=== PATIENT | male | born 1945 | race Caucasian/White ===

== ENCOUNTER → 2017-08-12 | Outpatient (CLI) | payer MEDICARE, OTHER ==
[~2017-08-12] MED LIST: ACET325 PO; ACIDOPHILUS LA1 EACH PO; AMLO5 PO; ARTTEAOPSO BOTHEYES; ASPI325 PO; ASPI81CH PO; Aranesp60 MCG/0.3 INJ; Aranesp60 MCG/0.3 SC; BD INSULIN MC; BISA10S PR; BUME1 PO; BUME2 PO; CALACE667G PO; CALC.25; CALC.25 PO; CALCA500CH PO; CEFP200 PO; CEPH500 PO; CHOL10002 PO; CIPR500 PO; CLON.1 PO; CLOP75 PO; CODGUAEL PO; CVS DISPOSABLE399 ML PR; CYAN1000I IM; CYAN1000I PO; CYCL10 PO; Calcium Acetat667 MG PO; Calmoseptine Oi71 GM TP; Colace250 MG PO; Coumadin2 MG PO; DARB200I SC; DOC250 PO; DOCU100 PO; DOXY100 PO; ELIQUIS2.5 MG PO; ENOX100I SQ; ENOX120I SC; ENOX60I SC; ERGO400 PO; FINA5 PO; FISH OIL + D31 EACH PO; FURO80; FURO80 PO; GABA100 PO; GLIM4; GLIP5ER PO; HYDACE10B PO; HYDHCL25 PO; HYDMOR2 PO; HYDMOR4 PO; HYDR-86 PO; HYDR1TAB94 PO; HYDRA25 PO; Humalog100 UNIT/1; Humalog100 UNIT/1 SC; INS70/30PN; INSDET100 SC; INSDET100 SUBQ; INSDETPEN SC; INSLIS75I SC; INSU100I6 SC; INSUASPI SC; INSULANPEN SC; Keflex500 MG PO; LASIX; LAVAP17G PO; LEVFLO250 PO; LEVFLO500 PO; LIDO5TP TOP; LORTAB; LOSA25 PO; LOSA50 PO; Lacri-Lube S.O3.5 GM BOTHEYES; METF500; METO2.5 PO; METO5 PO; METR500 PO; MIRALAX17 GM PO; Micro-K10 MEQ; Milk Of Ma400 MG/5 M PO; NEBI5 PO; NEPHRO-VITE RX1 EACH PO; NYST100P TOP; Nephro-Vite RX1 EA PO; Novolog100 UNIT/2 SC; OMEP20ER PO; ONDA4ODT MM; ONDA4ODT PO; ONDA8 PO; OXYC5 PO; Omeprazole20 M1 PO; PHOSLYRA667 MG/5 M PO; POTA10T PO; PRAV10 PO; PRAV20 PO; PRIM50 PO; PROBIOTIC1 EAC1; PROBIOTIC1 EAC1 PO; PROC10 PO; Percocet 5-3251 EACH PO; RENO PO; ROXICODONE5 MG PO; Rena-Vite Tabl0.8 MG PO; Rocephin 1g1 G/50 ML IV; SEVEC800 PO; SINEMET 25-1001 EACH PO; Stool Softener250 MG PO; TAMS.4ER PO; TERB250; TUMS DUAL ACTI1 EACH PO; Tylenol325 MG PO; UNK DIURETIC; WARF2 PO; WARF3 PO; WARF4 PO; WARF5 PO; WARF6 PO; XYZAL5 MG PO; Zofran Odt4 MG SL; Zofran Odt8 MG SL; Zofran4 MG PO; [UNRECOGNIZED DRUG - OTHER] PO; [UNRECOGNIZED DRUG - OTHER] TP
[2017-08-12 13:15] LABS: CHOL/HDL RATIO 2.7; Cholesterol 102 mg/dL (50-200); HDL Cholesterol 38 mg/dL (>39); LDL/HDL RATIO 1.2; Low Density Lipoprotein Chol 45 mg/dL (0-110); Triglycerides 94 mg/dL (30-160); Very Low Density Lipoprot Chol 18 mg/dL (6-32)
== END ==
LOC: LAB SHORT 12:38
PROVIDERS: Internal Medicine Nephrology
DX: E78.00 Pure hypercholesterolemia, unspecified (principal)
CPT/HCPCS: 80061

== ENCOUNTER 2018-09-21 10:43 | Day surgery (SDC) | payer MEDICARE, OTHER ==
[~2018-09-21] VITALS: Ht 183.9 cm; Wt 110.5 kg
[~2018-09-21 10:43] MED LIST changes: +Novolog Fl100 UNIT/1 SC
[2018-09-21] MEDS ORDERED: ELIQUIS5 MG PO (11:26)
[2018-09-21 12:09] LABS: International Normalized Ratio 0.98; Prothrombin Time Results 10.4 Sec (9.7-11.5)
--- NOTE | 2018-09-21 16:33 | NUR ---
DISCHARGE: PT REMAINED A&OX3. PT STATED PAIN LEVEL OF 7/10 INITIALLY IN THE SHOULDER AREA . BOTH UPPER R ARM SITES SUTURES REMOVED AFTER ONE HOUR IN RECOVERY-REMAIN CDI-NO HEMATOMA-CLOTH DOT BANDAGES IN PLACE. PT PLACED IN WHEELCHAIR WITH ASSISTANCE FROM THE GEOVANNA LIFT AND JANETT Lima RN ASSISTING. CAREGIVER HELPED WITH PUTTING PT'S SHIRT ON AND PLACED WHEELCHAIR SEATBELT. IV DC'D WITH TIP IN CANULA IN TACT BY JANETT Lima RN. DISCHARGE PAPERWORK GONE OVER WITH PT AND CAREGIVER. PT AND CAREGIVER VERBALLY STATED THE UNDERSTANDING OF THE DISCHARGE EDUCATION AND DENIED ANY QUESTIONS AT THIS TIME. DR. PEREZ IN [facility] PAIN AND PROCEDURE FINDINGS AND FOLLOW-UP PLAN BEFORE DISCHARGE. PT WHEELD OUT BY CAREGIVER TO TRANSPORTATION VAN.
== END 2018-09-21 16:40 | disposition home or self-care (01) ==
LOC: MHTC 10:43
PROVIDERS: Radiology Diagnostic Radiology
DX: E11.22 Type 2 diabetes mellitus with diabetic chronic kidney disease (principal); N18.6 End stage renal disease; E11.52 Type 2 diabetes mellitus with diabetic peripheral angiopathy with gangrene; I25.10 Atherosclerotic heart disease of native coronary artery without angina pectoris; K21.9 Gastro-esophageal reflux disease without esophagitis; Z87.891 Personal history of nicotine dependence; Z99.89 Dependence on other enabling machines and devices; Z86.73 Personal history of transient ischemic attack (TIA), and cerebral infarction without residual deficits; Z99.2 Dependence on renal dialysis; Z85.828 Personal history of other malignant neoplasm of skin; Z79.899 Other long term (current) drug therapy
CPT/HCPCS: 85610; 99152; 99153; C1725; C1757; C1769; C1876; C1887; C1894; J1644; J2250; J3010; J7030; Q9967

== ENCOUNTER 2018-10-05 12:30 | Day surgery (SDC) | payer MEDICARE, OTHER ==
[~2018-10-05 12:30] MED LIST changes: +ELIQUIS5 MG PO
--- NOTE | 2018-10-05 12:45 | NUR ---
PT ARRIVED TO ROOM VIA HIS OWN WHEELCHAIR, A/O X 4, PLEASANT/COOPERATIVE, CAREGIVERS WITH PT. PT TRANSFERRED TO RECLINER WITH LIFT. TYPE AND SCREEN ORDERS. 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 ULTRASOUND WILL BE REQUIRED FOR IV START. LENS EDGE GRINDER MACHINE IS CALLED.
--- NOTE | 2018-10-05 13:41 | NUR ---
repositioned patient with two pillows. awaiting ICU sales recruitment specialist with ultrasound start of peripheral
--- NOTE | 2018-10-05 14:15 | NUR ---
glass furnace operator delonda accessed pt's dialysis port, linda blood for type/screen, ambulated blood to blood bank. awaiting blood slip. franklyn morin will be starting blood once available
--- NOTE | 2018-10-05 18:10 | NUR ---
INFUSION COMPLETE, VSS. DIALYSIS PORT DE-ACCESSED PER PROTOCOL/INSTRUCTIONS FROM CURB SETTER. PT A/0 X 4, PLEASANT/COOPERATIVE. PT TRANSFERRED TO WHEELCHAIR WITH LIFT. CAREGIVERS CALLED FOR TRANSPORT, AWAITING RETURN
--- NOTE | 2018-10-05 18:20 | NUR ---
pt's caregiver to transfer pt to awaiting vehicle via wheelchair with belongings
== END 2018-10-05 18:30 | disposition home or self-care (01) ==
LOC: SURS 12:30 → TRN 12:30
PROC: 30243N1 Transfusion of Nonautologous Red Blood Cells into Central Vein, Percutaneous Approach (ICD-10-PCS; principal; 2018-10-05)
DX: N18.6 End stage renal disease (principal); D63.1 Anemia in chronic kidney disease; Z99.2 Dependence on renal dialysis
CPT/HCPCS: 36430; 86850; 86900; 86901; 86923; J7050; P9016

== ENCOUNTER 2019-02-14 16:39 | Observation (INO) | payer MEDICARE, OTHER ==
[~2019-02-14] VITALS: Ht 152.4 cm; Wt 105.6 kg
[~2019-02-14 16:39] MED LIST changes: -ELIQUIS5 MG PO; -Novolog Fl100 UNIT/1 SC; -SINEMET 25-1001 EACH PO
[2019-02-14 17:44] LABS: BASOPHILS ABSOLUTE AUTO 0.03 K/mm3 (0.00-0.23); BASOPHILS PERCENT AUTO 0 % (0-2); EOSINOPHILS ABSOLUTE AUTO 0.42 K/mm3 (0.00-0.68); EOSINOPHILS PERCENT AUTO 4 % (0-6); Hematocrit 40.1 % (37.0-53.0); Hemoglobin 12.5 g/dL (13.5-17.5); IMMATURE GRAN ABSOLUTE AUTO 0.02 K/mm3 (0.00-0.10); IMMATURE GRAN PERCENT AUTO 0 % (0-1); LYMPHOCYTES ABSOLUTE AUTO 1.06 K/mm3 (0.84-5.20); LYMPHOCYTES PERCENT AUTO 10 % (21-46); MONOCYTES ABSOLUTE AUTO 0.42 K/mm3 (0.16-1.47); MONOCYTES PERCENT AUTO 4 % (4-13); Mean Corpuscular HGB 31.2 pg (26.0-34.0); Mean Corpuscular HGB Conc 31.2 g/dL (31.5-36.5); Mean Corpuscular Volume 100 fL (80-100); Mean Platelet Volume 11.4 fL (9.1-12.4); NEUTROPHILS ABSOLUTE AUTO 8.53 K/mm3 (1.96-9.15); NEUTROPHILS PERCENT AUTO 81 % (41-73); Platelet Count 233 K/mm3 (150-400); RDW Coefficient Variation 14.5 % (11.7-14.2); RDW Standard Deviation 53.4 fL (35.1-46.3); Red Blood Cell Count 4.01 M/mm3 (4.30-5.90); White Blood Cell Count 10.48 K/mm3 (4.00-11.30)
[2019-02-14 18:07] LABS: International Normalized Ratio 0.96; Prothrombin Time Results 10.2 Sec (9.7-11.5)
[2019-02-14 19:23] LABS: Albumin/Globulin Ratio 0.5 (0.8-1.8); Bilirubin, Total 0.3 mg/dL (0.1-1.0); Bun/Creatinine Ratio 12.1 (12.0-20.0); Calcium, Blood 8.3 mg/dL (8.5-10.1); Creatinine, Blood 3.23 mg/dL (0.60-1.20); Globulin, Blood 5.7 g/dL (2.2-4.0); Total Protein, Blood 8.7 g/dL (6.4-8.2); Troponin I 0.016 ng/mL (0.000-0.040)
[2019-02-14] MEDS ORDERED: CLON.1 PO (20:30)
[2019-02-14] MEDS ORDERED: INSULANPEN SC (20:30)
[2019-02-14] MEDS ORDERED: GABA100 PO (20:31)
[2019-02-14] MEDS ORDERED: Omeprazole20 M1 PO (20:31)
[2019-02-14] MEDS ORDERED: PRAV20 PO (20:31)
[2019-02-14] MEDS ORDERED: FINA5 PO (20:32)
[2019-02-14] MEDS ORDERED: Bumetanide2 MG PO (20:32)
[2019-02-14] MEDS ORDERED: SINEMET 25-1001 EACH PO (20:33)
[2019-02-14] MEDS ORDERED: LOSA50 PO (20:33)
[2019-02-14] MEDS ORDERED: Rena-Vite Tabl0.8 MG PO (20:34)
[2019-02-14] MEDS ORDERED: NOVOLOG FL100 UNIT/1 SC (20:34)
[2019-02-14] MEDS ORDERED: SEVEC800 PO (20:35)
[2019-02-14] MEDS ORDERED: ELIQUIS2.5 MG PO (20:36)
[2019-02-14] MEDS ORDERED: Cyclobenzaprine5 MG PO (20:37)
--- NOTE | 2019-02-15 01:02 | NUR ---
2145 PT ADMITTED TO ROOM 306 PER CART FROM ER.
[2019-02-15 04:58] LABS: Hematocrit 37.1 % (37.0-53.0); Hemoglobin 11.5 g/dL (13.5-17.5); Mean Corpuscular HGB 30.7 pg (26.0-34.0); Mean Corpuscular Volume 99 fL (80-100); Mean Platelet Volume 11.3 fL (9.1-12.4); Platelet Count 209 K/mm3 (150-400); RDW Coefficient Variation 14.5 % (11.7-14.2); RDW Standard Deviation 52.7 fL (35.1-46.3); Red Blood Cell Count 3.75 M/mm3 (4.30-5.90); White Blood Cell Count 12.89 K/mm3 (4.00-11.30)
[2019-02-15 05:15] LABS: Albumin, Blood 2.7 g/dL (3.4-5.0); Anion Gap 9 mmol/L (6-16); Blood Urea Nitrogen 47 mg/dL (8-24); Bun/Creatinine Ratio 11.9 (12.0-20.0); CO2, Blood 31 mmol/L (21-32); Calcium, Blood 8.1 mg/dL (8.5-10.1); Chloride, Blood 96 mmol/L (98-108); Creatinine, Blood 3.94 mg/dL (0.60-1.20); Glomerular Filtration Rate 16 (60-); Glucose, Blood 133 mg/dL (70-99); Magnesium, Blood 2.4 mg/dL (1.6-2.4); Phosphorus, Blood 3.2 mg/dL (2.5-4.9); Sodium, Blood 136 mmol/L (136-145)
--- NOTE | 2019-02-15 06:39 | NUR ---
SHIFT SUMMARY: 73 Y/O OBESE MALE RESTED COMFORTABLY ALL SHIFT WHILE BIPAP WITH O2 SAT 100% VIA CONTINUOUS MONITOR, BLOOD GLUCOSE MONITORED WITH LAST RESULT 91 AND ATE SNACK PRIOR BEDTIME, HANH HAS STAGE II ULCER (SEE PHOTO) WITH MEPLEX APPLIED, VOICED HE WAS EXPOSED TO AGENT ORANGE IN THE [place] AFTER 3 TOURS FROM [id number] MEDIC, DENIES PAIN OR NAUSEA, BED ALARM APPLIED, BED LOW POSITION, CALL LIGHT AT SIDE.
--- NOTE | 2019-02-15 06:42 | NUR ---
8038 DR QUINTANA AT BEDSIDE FOR CONSULT.
--- NOTE | 2019-02-15 09:05 | NUR ---
ECHO IN PROGRESS.
--- NOTE | 2019-02-15 09:47 | NUR ---
Echocardiogram using 27ml (3 X9ml) of agitated saline contrast performed.
--- NOTE | 2019-02-15 15:11 | NUR ---
Patient is lying in bed and alert. 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 Patient also spoke of the many victories along the way: his salvation experience in becoming a Islam, his wedding day and the decades of love he received from his . Patient told many funny stories and talks about his carolin and his sense of humor as the keys to overcoming adversity. I provided empathic listening, pastoral insurance counselor and prayer. Patient responded well and showed signs of a greater sense of hope.
--- NOTE | 2019-02-15 17:21 | NUR ---
SHIFT SUMMARY OX3. [id number]. PLEASANT COOPERATIVE. CAROTID DOPPLER, ECHO AND MRI RESULTS PENDING. NO DIALYSIS TODAY. LIFT PATIENT. MEPILEX TO SACRUM FOR DECUBITUS. ESBL CONTACT ISOLATION.
--- NOTE | 2019-02-16 04:46 | NUR ---
SHIFT SUMMARY: 73 Y/O MALE RESTED COMFORTABLY IN BED ALL SHIFT WHILE WEARING O2 AT 2L/M PER NASAL CANNULA WITH CONTINUOUS PULSE OXIMETER REFLECTING 93% READINGS, ALERT AND ORIENTED X 4, DENIES PAIN OR NAUSEA, BED ALARM APPLIED, BED LOW POSITION, CALL LIGHT AT SIDE.
[2019-02-16 04:51] LABS: BASOPHILS ABSOLUTE AUTO 0.04 K/mm3 (0.00-0.23); BASOPHILS PERCENT AUTO 0 % (0-2); EOSINOPHILS ABSOLUTE AUTO 0.53 K/mm3 (0.00-0.68); EOSINOPHILS PERCENT AUTO 5 % (0-6); Hematocrit 35.8 % (37.0-53.0); Hemoglobin 11.3 g/dL (13.5-17.5); IMMATURE GRAN ABSOLUTE AUTO 0.02 K/mm3 (0.00-0.10); IMMATURE GRAN PERCENT AUTO 0 % (0-1); LYMPHOCYTES ABSOLUTE AUTO 1.66 K/mm3 (0.84-5.20); LYMPHOCYTES PERCENT AUTO 17 % (21-46); MONOCYTES ABSOLUTE AUTO 0.55 K/mm3 (0.16-1.47); MONOCYTES PERCENT AUTO 6 % (4-13); Mean Corpuscular HGB 31.8 pg (26.0-34.0); Mean Corpuscular HGB Conc 31.6 g/dL (31.5-36.5); Mean Corpuscular Volume 101 fL (80-100); Mean Platelet Volume 11.5 fL (9.1-12.4); NEUTROPHILS ABSOLUTE AUTO 7.17 K/mm3 (1.96-9.15); NEUTROPHILS PERCENT AUTO 72 % (41-73); Platelet Count 187 K/mm3 (150-400); RDW Coefficient Variation 14.4 % (11.7-14.2); RDW Standard Deviation 53.3 fL (35.1-46.3); Red Blood Cell Count 3.55 M/mm3 (4.30-5.90); White Blood Cell Count 9.97 K/mm3 (4.00-11.30)
[2019-02-16 05:17] LABS: Magnesium, Blood 2.6 mg/dL (1.6-2.4)
[2019-02-16 05:29] LABS: Albumin, Blood 2.7 g/dL (3.4-5.0); Albumin/Globulin Ratio 0.6 (0.8-1.8); Bilirubin, Total 0.3 mg/dL (0.1-1.0); Bun/Creatinine Ratio 12.5 (12.0-20.0); Calcium, Blood 8.2 mg/dL (8.5-10.1); Creatinine, Blood 5.7 mg/dL (0.60-1.20); Globulin, Blood 4.8 g/dL (2.2-4.0); Potassium, Blood 4.3 mmol/L (3.5-5.5); Total Protein, Blood 7.5 g/dL (6.4-8.2)
--- NOTE | 2019-02-16 18:17 | NUR ---
SHIFT SUMMARY. A&OX3, PLEASANT, COOPERATIVE. PT DENIES PAIN SOB, N/V. PT RECIEVED DIALYSIS TODAY. MEPILEX CHANGED TO COCCYX AFTER BEDBATH. PT HAD 2 BMS THIS SHIFT. MRI COMPLETED. NO NEW CHANGES OR CONCERNS.
--- NOTE | 2019-02-16 22:34 | NUR ---
DR QUINTANA AT BEDSIDE
--- NOTE | 2019-02-17 03:52 | NUR ---
SHIFT SUMMARY: 73 Y/O OBESE MALE RESTED COMFORTABLY ALL SHIFT WITH NO C/O PAIN OR NAUSEA, WEARING O2 AT 2L/M PER NASAL CANNULA, ALERT AND ORIENTED X4, RIGHT UPPER CHEST DIALYSIS PERMACATH DRESSING DRY AND INTACT WITH NO S/S INFECTION, MEPLEX DRESSING TO COCCYX DRY AND INTACT, BED ALARM APPLIED, BED LOW POSITION, CALL LIGHT AT SIDE.
--- NOTE | 2019-02-17 04:25 | NUR ---
PATIENT TRANSFER RN TO RN. RECEIVED REPORT FROM AARON GARZA.
[2019-02-17 05:04] LABS: Hemoglobin 11.2 g/dL (13.5-17.5)
[2019-02-17 05:35] LABS: Albumin, Blood 2.8 g/dL (3.4-5.0); Anion Gap 9 mmol/L (6-16); Blood Urea Nitrogen 54 mg/dL (8-24); Bun/Creatinine Ratio 10.6 (12.0-20.0); CO2, Blood 31 mmol/L (21-32); Calcium, Blood 8.3 mg/dL (8.5-10.1); Chloride, Blood 96 mmol/L (98-108); Creatinine, Blood 5.09 mg/dL (0.60-1.20); Glomerular Filtration Rate 12 (60-); Glucose, Blood 157 mg/dL (70-99); Magnesium, Blood 2.4 mg/dL (1.6-2.4); Phosphorus, Blood 3.4 mg/dL (2.5-4.9); Sodium, Blood 136 mmol/L (136-145)
--- NOTE | 2019-02-17 13:35 | NUR ---
MICHAEL, PT'S POA, NOTIFIED OF PT'S D/C ORDERS, HE REPORTED THAT HE WOULD "BE UP IN A BIT."
--- NOTE | 2019-02-17 15:12 | NUR ---
1450 PT DISCHARGED HOME VIA PERSONAL VEHICLE AND W/C. PERSONAL LIFT SLING AND CEILING LIFT USED TO TRANSFER PT TO CHAIR. IV REMOVED. D/C PAPERWORK REVIEWED WITH JOSE ANTONIO RODRIGUEZ, PRIOR TO D/C AND COPY PROVIDED. MICHAEL CONTACTED DR. QUINTANA'S OFFICE TO CONFIRM PT'S DIALYSIS TOMORROW HE HAD DIALYSIS TODAY INPATIENT. PT HAD LARGE UNFORMED BM PRIOR TO D/C, MEPILEX CHANGED TO COCCYX. NO NEW CHANGES OR CONCERNS.
== END 2019-02-17 14:59 | disposition home or self-care (01) ==
LOC: ER 16:39 → MEDS 16:40
PROVIDERS: Emergency Medicine; Internal Medicine Nephrology; Nurse Practitioner Acute Care; ADMIT Internal Medicine
DX: G56.21 Lesion of ulnar nerve, right upper limb (principal); I13.2 Hypertensive heart and chronic kidney disease with heart failure and with stage 5 chronic kidney disease, or end stage renal disease; E11.22 Type 2 diabetes mellitus with diabetic chronic kidney disease; I50.9 Heart failure, unspecified; N18.6 End stage renal disease; D63.1 Anemia in chronic kidney disease; E11.51 Type 2 diabetes mellitus with diabetic peripheral angiopathy without gangrene; I73.9 Peripheral vascular disease, unspecified; E87.70 Fluid overload, unspecified; E87.1 Hypo-osmolality and hyponatremia; E87.5 Hyperkalemia; J96.11 Chronic respiratory failure with hypoxia; J96.12 Chronic respiratory failure with hypercapnia; I48.91 Unspecified atrial fibrillation; G47.33 Obstructive sleep apnea (adult) (pediatric); E66.9 Obesity, unspecified; Z99.2 Dependence on renal dialysis; Z79.899 Other long term (current) drug therapy; Z88.5 Allergy status to narcotic agent; Z79.4 Long term (current) use of insulin; Z79.02 Long term (current) use of antithrombotics/antiplatelets; Z87.891 Personal history of nicotine dependence; Z68.42 Body mass index [BMI] 45.0-49.9, adult
CPT/HCPCS: 36415; 70450; 71046; 73221; 80048; 80053; 80069; 82947; 83036; 83735; 84484; 85014; 85018; 85025; 85027; 85610; 85730; 93005; 93010; 93306; 93880; 93971; 94660; 94762; 99285-25; G0257; G0378

== ENCOUNTER 2019-07-27 16:37 | Observation (INO) | payer MEDICARE, OTHER ==
[~2019-07-27] VITALS: Ht 149.9 cm; Wt 101.6 kg
[~2019-07-27 16:37] MED LIST changes: +Bumetanide2 MG PO; +Cyclobenzaprine5 MG PO; +NOVOLOG FL100 UNIT/1 SC; +SINEMET 25-1001 EACH PO
[2019-07-27 17:17] LABS: BASOPHILS ABSOLUTE AUTO 0.04 K/mm3 (0.00-0.23); BASOPHILS PERCENT AUTO 0 % (0-2); EOSINOPHILS ABSOLUTE AUTO 0.45 K/mm3 (0.00-0.68); EOSINOPHILS PERCENT AUTO 3 % (0-6); Hematocrit 40.5 % (37.0-53.0); Hemoglobin 12.8 g/dL (13.5-17.5); IMMATURE GRAN ABSOLUTE AUTO 0.06 K/mm3 (0.00-0.10); IMMATURE GRAN PERCENT AUTO 0 % (0-1); LYMPHOCYTES ABSOLUTE AUTO 1.79 K/mm3 (0.84-5.20); LYMPHOCYTES PERCENT AUTO 11 % (21-46); MONOCYTES PERCENT AUTO 6 % (4-13); Mean Corpuscular HGB 32.5 pg (26.0-34.0); Mean Corpuscular HGB Conc 31.6 g/dL (31.5-36.5); Mean Corpuscular Volume 103 fL (80-100); Mean Platelet Volume 11.5 fL (9.1-12.4); NEUTROPHILS ABSOLUTE AUTO 13.17 K/mm3 (1.96-9.15); NEUTROPHILS PERCENT AUTO 80 % (41-73); Platelet Count 285 K/mm3 (150-400); RDW Coefficient Variation 13.3 % (11.7-14.2); RDW Standard Deviation 51.4 fL (35.1-46.3); Red Blood Cell Count 3.94 M/mm3 (4.30-5.90); White Blood Cell Count 16.51 K/mm3 (4.00-11.30)
[2019-07-27 17:39] LABS: Albumin, Blood 3.7 g/dL (3.4-5.0); Albumin/Globulin Ratio 0.6 (0.8-1.8); Bilirubin, Total 0.4 mg/dL (0.1-1.0); Bun/Creatinine Ratio 17.1 (12.0-20.0); Calcium, Blood 8.7 mg/dL (8.5-10.1); Creatinine, Blood 1.99 mg/dL (0.60-1.20); Globulin, Blood 6.4 g/dL (2.2-4.0); Potassium, Blood 3.4 mmol/L (3.5-5.5); Total Protein, Blood 10.1 g/dL (6.4-8.2); Troponin I 0.053 ng/mL (0.000-0.040)
[2019-07-27] MEDS ORDERED: Midodrine HCl5 MG PO (17:42)
[2019-07-27] MEDS ORDERED: GABA100 PO (19:19)
[2019-07-27] MEDS ORDERED: INSULANPEN SC (23:01)
[2019-07-27] MEDS ORDERED: MIRALAX17 GM PO (23:04)
--- NOTE | 2019-07-28 04:58 | NUR ---
BASKETBALL ASSEMBLER SUMMARY NEW ADMIT FROM THE ED TONIGHT. PT ON OBSERVATION AFTER HAVING A SYNCOPAL EPISODE AT THE END OF DIALYSIS SESSION. PT DENIES SIMILAR SYMPTOMS AND VS HAVE BEEN STABLE WITH SBP 90-110. PT STATES THESE ARE NORMAL FOR HIM. PT HAS BILATERAL BKA AND IS INCONTINENT AT BASELINE. ASSISTED WITH TURNS AND CHANGES. PT HAS SMALL AMOUNT OF SKIN BREAKDOWN ON COCCYX. PHOTO PLACED IN CHART AND MEPILEX COVERED AREA TO PREVENT FURTHER BREAKDOWN. VSS, WILL CONTINUE TO MONITOR.
[2019-07-28 05:13] LABS: Bun/Creatinine Ratio 18.1 (12.0-20.0); Calcium, Blood 8.7 mg/dL (8.5-10.1); Creatinine, Blood 2.93 mg/dL (0.60-1.20); Potassium, Blood 3.6 mmol/L (3.5-5.5)
--- NOTE | 2019-07-28 10:41 | NUR ---
DISCHARGE INSTRUCTIONS REVIEWED WITH PATIENT. ALL QUESTIONS ANSWERED. IV DISCONTINUED. PATIENT TO CALL HIS DRAWING IN MACHINE TENDER FOR A RIDE HOME.
--- NOTE | 2019-07-28 11:40 | NUR ---
PATIENT DISCHARGED HOME WITH CAREGIVER AT 1139. ASSISTED WITH TRANSFERING PATIENT INTO WHEELCHAIR USING GEOVANNA LIFT.
== END 2019-07-28 11:40 | disposition home or self-care (01) ==
LOC: ER 16:37 → MEDS 16:38
PROVIDERS: Emergency Medicine; ADMIT Internal Medicine
DX: R55 Syncope and collapse (principal); R79.89 Other specified abnormal findings of blood chemistry; J96.11 Chronic respiratory failure with hypoxia; J96.12 Chronic respiratory failure with hypercapnia; I13.2 Hypertensive heart and chronic kidney disease with heart failure and with stage 5 chronic kidney disease, or end stage renal disease; E11.22 Type 2 diabetes mellitus with diabetic chronic kidney disease; N18.6 End stage renal disease; I50.9 Heart failure, unspecified; G47.33 Obstructive sleep apnea (adult) (pediatric); I48.91 Unspecified atrial fibrillation; E11.51 Type 2 diabetes mellitus with diabetic peripheral angiopathy without gangrene; E66.9 Obesity, unspecified; Z68.41 Body mass index [BMI] 40.0-44.9, adult; Z99.2 Dependence on renal dialysis; Z86.73 Personal history of transient ischemic attack (TIA), and cerebral infarction without residual deficits; Z89.512 Acquired absence of left leg below knee; Z89.511 Acquired absence of right leg below knee; Z88.5 Allergy status to narcotic agent; Z91.018 Allergy to other foods; Z91.048 Other nonmedicinal substance allergy status; Z79.4 Long term (current) use of insulin; Z79.01 Long term (current) use of anticoagulants; Z79.899 Other long term (current) drug therapy
CPT/HCPCS: 36415; 80048; 80053; 82947; 83880; 84146; 84484; 85025; 87081; 93005; 93010; 96360; 96361; 96372; 99285-25; G0378; J1644; J7030

== ENCOUNTER 2019-11-15 08:59 | Inpatient (IN) | payer MEDICARE, OTHER ==
[~2019-11-15] VITALS: Ht 152.4 cm; Wt 74.0 kg
[~2019-11-15 08:59] MED LIST changes: -Bumetanide2 MG PO; -Cyclobenzaprine5 MG PO; -NOVOLOG FL100 UNIT/1 SC; -SINEMET 25-1001 EACH PO
[2019-11-15 10:17] LABS: Automated BF WBC Count 0.021 K/mm3 (0-999); Body Fluid WBC Count 21 /mm3 (0-999)
[2019-11-15 10:59] LABS: RBC Count, Body Fluid 33 /mm3 (0-0)
[2019-11-15 11:09] LABS: Appearance, Body Fluid Clear (Clear); Color, Body Fluid No color (None-Yellow); Total Cell Count, Body Fluid 100
[2019-11-15 11:17] LABS: BASOPHILS ABSOLUTE AUTO 0.04 K/mm3 (0.00-0.23); BASOPHILS PERCENT AUTO 0 % (0-2); EOSINOPHILS ABSOLUTE AUTO 0.05 K/mm3 (0.00-0.68); EOSINOPHILS PERCENT AUTO 0 % (0-6); Hematocrit 26.5 % (37.0-53.0); Hemoglobin 8.2 g/dL (13.5-17.5); IMMATURE GRAN ABSOLUTE AUTO 0.19 K/mm3 (0.00-0.10); IMMATURE GRAN PERCENT AUTO 1 % (0-1); LYMPHOCYTES ABSOLUTE AUTO 1.55 K/mm3 (0.84-5.20); LYMPHOCYTES PERCENT AUTO 6 % (21-46); MONOCYTES ABSOLUTE AUTO 1.59 K/mm3 (0.16-1.47); MONOCYTES PERCENT AUTO 6 % (4-13); Mean Corpuscular HGB Conc 30.9 g/dL (31.5-36.5); Mean Corpuscular Volume 104 fL (80-100); Mean Platelet Volume 11.7 fL (9.1-12.4); NEUTROPHILS PERCENT AUTO 86 % (41-73); Platelet Count 273 K/mm3 (150-400); RDW Coefficient Variation 14.6 % (11.7-14.2); RDW Standard Deviation 54.4 fL (35.1-46.3); Red Blood Cell Count 2.56 M/mm3 (4.30-5.90); White Blood Cell Count 24.82 K/mm3 (4.00-11.30)
[2019-11-15 12:01] LABS: Albumin, Blood 2.3 g/dL (3.4-5.0); Albumin/Globulin Ratio 0.4 (0.8-1.8); Alk Phos 96 U/L (50-136); Anion Gap 15 mmol/L (6-16); Aspartate Aminotrans (AST/SGOT 101 U/L (12-37); Bilirubin, Total 0.5 mg/dL (0.1-1.0); Blood Urea Nitrogen 66 mg/dL (8-24); Bun/Creatinine Ratio 9.1 (12.0-20.0); CO2, Blood 24 mmol/L (21-32); Calcium, Blood 8.3 mg/dL (8.5-10.1); Chloride, Blood 95 mmol/L (98-108); Creatinine, Blood 7.25 mg/dL (0.60-1.20); Globulin, Blood 5.5 g/dL (2.2-4.0); Glomerular Filtration Rate 8 (60-); Glucose, Blood 154 mg/dL (70-99); Potassium, Blood 3.1 mmol/L (3.5-5.5); Sodium, Blood 134 mmol/L (136-145); Total Protein, Blood 7.8 g/dL (6.4-8.2)
[2019-11-15 12:05] LABS: Alanine Aminotransfer (ALT/SGP <6 U/L (12-78)
[2019-11-15] MEDS ORDERED: PRAV20 PO (12:47)
[2019-11-15] MEDS ORDERED: INSULANPEN SC ×2 (12:56→12:59)
[2019-11-15] MEDS ORDERED: GABA300 PO (12:56)
[2019-11-15] MEDS ORDERED: Omeprazole20 M1 PO (12:56)
[2019-11-15] MEDS ORDERED: NOVOLOG FL100 UNIT/1 SC (12:57)
[2019-11-15] MEDS ORDERED: FINA5 PO (12:57)
[2019-11-15] MEDS ORDERED: Bumetanide2 MG PO (12:57)
[2019-11-15] MEDS ORDERED: SINEMET 25-1001 EACH PO (12:57)
[2019-11-15] MEDS ORDERED: SEVEC800 PO (12:58)
[2019-11-15] MEDS ORDERED: ELIQUIS2.5 MG PO (12:58)
[2019-11-15] MEDS ORDERED: Cyclobenzaprine5 MG PO (12:58)
[2019-11-15] MEDS ORDERED: Rena-Vite Tabl0.8 MG PO (12:58)
[2019-11-15] MEDS ORDERED: Midodrine HCl5 MG PO (12:59)
[2019-11-15] MEDS ORDERED: PROBIOTIC250 MG PO (13:00)
--- NOTE | 2019-11-15 13:16 | NUR ---
PD Patient Collected an effluent sample per doctor order. The effluent was clear. Sent sample to lab.
--- NOTE | 2019-11-15 14:52 | NUR ---
eCHOCARDIOGRAM USING 0.75ML OF dEFINITY CONTRAST PERFORMED.
[2019-11-15 17:56] LABS: Hematocrit 28.7 % (37.0-53.0)
[2019-11-15 18:09] LABS: Magnesium, Blood 2.1 mg/dL (1.6-2.4)
--- NOTE | 2019-11-15 19:09 | NUR ---
PD PATIENT ORDERS TO RUN PERITONEAL DIALYSIS TONIGHT. THREE 6L 4.25% FOR 10 HOURS WITH A 1500 LAST FILL. ON ARRIVAL TO ICU, RECEIVED REPORT FROM NURSE JOHN THAT THE PATIENT WAS NOT STABLE, DIAPHORETIC AND HYPOTENSIVE. AT THIS POINT SHE CALLED DR QUINTANA WHILE I STOOD BY TO CONFIRM ORDERS. DR QUINTANA ORDERED ME TO DRAIN AND TAP PERITONEUM AND AWAIT FURTHER ORDERS. WHILE IN THE ROOM CLEANING AREA AND PREPARING TO DRIAN THE PERITONEUM, THE PATIENT WENT INTO ASYSTOLE. THE PD NURSE IMMEDIATLEY REMOVED ALL PD SUPPLIES AND PD CART FROM AREA TO MAKE ROOM FOR CRASH CART. DR QUINTANA WAS INFORMED OF THE CONDITION OF THE PAITENT. DR QUINTANA GAVE ORDERS TO HOLD ON DRAINING PERITINEUM AT THIS TIME. FUTHER ORDERS. FROM ICU NURSE IT WAS REPORTED THAT HTE - PAITENT IS NOT STABLE. PATIENT'S BLOOD PRESSURES ARE IN THE
--- NOTE | 2019-11-15 19:32 | NUR ---
Arrived to [facility] Bedside RN speaking with JOSE ANTONIO Gandhi who instructs to honor Pt's wishes of 1 round of CPR and no intubation. Care Team honors wishes with Pt's expiring. Dr Salvador contacts , educates on measures performed and offers condolences. This RN called and offers condolences. Offered therapeutic listening as is tearful. Continued therapeutic listening with asking what she needs to do. Instructed that care team needs to know home of choice. calls this RN back and reports home of choice is [facility]. expresses appreciation of call and reports no other concerns at this time. Instructed to call Palliative care with any questions or concerns. Relayed home of choice to Bedside RN. Palliative Care will remain available.
--- NOTE | 2019-11-15 19:43 | NUR ---
[id number]: PT ADMITTED TO ICU DX-NSTEMI. PMH-ESRD, DM, HTN, CT, COPD, AF, [place], BILATERAL BKA 04/2015. PT AWAKE & ALERT ON ADMIT. SLOW TO RESPOND, BUT APPROPRIATE RESPONSES. PT STATES THAT MISTERY IS HIS POA FOR HEALTHCARE DECISIONS. PT IS GENERALLY WEAK.HE DENIES PAIN OR NAUSEA. PT GAVE CONSENT TO PHOTO A WOUND ON HIS COCCYX/BUTTOCKS THAT IS MACERATED. CLEANSED WITH WOUND CLEANSER AND FOAM DRESSING PLACED. ECG SHOWED SR WITH LBBB ON ADMIT. SBP TRENDING IN THE 80'S. PT TAKE MIDODRINE AT HOME. MED WITH MIDODRINE 5 MG PO WITH SIP OF WATER SHORTLY AFTER ADMIT TO ICU-SEE EMAR. NPO EXCEPT FOR SIP OF WATER WITH MEDS. PT ABDOMEN DISTENDED-TENDER TO PALPATION. PERITONEAL DIALYSIS CATH TO RIGHT QUADRANT AND RSC PERMACATH TO RSC. PT ANURIC- HE WAS INCONTINENT OF STOOL-BILL CARE DONE AND NEW ATTENDS PLACED. DR. VIEIRA HAS BEEN CONSULTED FOR CARDIOLOGY AND DR. QUINTANA FOR NEPHROLOGY. DR. AUGUSTINE HERE @ 1635 TO SEE PT.UPDATED TO CURRENT VS AND MAKE AWARE THAT SBP TRENDING 70-80'S. AT THAT TIME, PT WAS RESTING QUIETLY WHEN NOT DISTURBED, BUT AWAKENED TO VOICE AND DENIED PAIN OR DISCOMFORT. PT WAS GIVEN ADDITIONAL MIDODRINE 7.5 MG PO, AND PLAVIX 300MG PO-SEE EMAR. DR. QUINTANA REMINDED OF HIS CONSULT @ 1638. UPDATED DR. QUINTANA TO CURRENT VS, LABS, AND PT STATUS AT THAT TIME. STAT MG, K+, AND H&H ORDERED. NS @ 125 CC/HR INFUSING- ALBUMIN 25% GIVEN. VIA #20 TO LEFT AC-NO BP OR IV ON RIGHT DUE TO OLD AV FISTULA. DR. VIEIRA IN [place] TO SEE PT. PLAN TO START HEPARIN DRIP TONIGHT AND POSSIBLE CATH IN AM. AWARE THAT MAP 50-60 AT BEST DESPITE MED WITH MIDODRINE. ALSO, ORDER OBTAINED TO START PICC LINE HE IS A DIFFICULT SHIREEN PUNCTURE. AT 1745, PT STATES, I DON'T FEEL SO WELL. PT APPEARS VERY PALE AND DIAPHORETIC. MAP<50. REPORTS JAW "TIGHTNESS." NS BOLUS INITIATED. 02 TITRATED UP TO [address] AUGUSTINE UPDATED TO PT CURRENT VS AND STATUS. ORDER GIVEN FOR LEVOPHED DRIP-TITRATE TO MAP 65.MAP CONTINUED TO TREND <65. PT SKIN JOSEPH, AND DIAPHORETIC. HR 120'S. DR. AUGUSTINE NOTIFIED OF CONTINUED HYPOTENSION AND OF TACHYCARDIA-CRITICAL CARE CONSULT REQUESTED. DR. VIEIRA UPDATED WELL. NEOSYNEPHRINE DRIP ORDER TO TITRATE TO MAP 65-SHE AGREES WITH THE CRITICAL CARE CONSULT AND SUGGESTS AN A-LINE WELL. DWAINE GOEL CALLED FOR AN UPDATE AT APROX. 1899-RN BEGAN THE UPDATE AND HAD TO HANG UP ABRUPTLY, WHEN PT HR 60'S. PT REPORTED NAUSEA. MED WITH ZOFRAN 4 MG IVP. PT ASKED ABOUT HIS WISHES REGARDING INTUBATION AND CPR. PT STATED THAT HE DID NOT WISH TO BE INTUBATED AND WAS ADAMANT THAT "ONE ROUND OF CPR CAN BE DONE AND IF I DON'T COME BACK, LET ME GO. I'M ." DR. GARCIA MADE AWARE OF THE CONSULT AND SUMMONED TO THE ROOM. JUST PRIOR TO MD ARRIVAL TO THE ROOM, A CODE BLUE WAS CALLED PT STOPPED BREATHING AND BECAME BRADYCARDIC. SEE CODE BLUE RECORD. THE CODE WAS STARTED @ 1905- AT THAT TIME, THIS RN CALLED DWAINE GOEL POElizabeth FOR HEALTHCARE. SHE WAS INFORMED OF PT WISHES JUST PRIOR TO HIS ARREST. SHE STATES "WE HAVE TO HONOR HIS WISHES." ULTIMATELY, THE RESUSCITATION EFFORT WAS ABATED @1913 AND PT WAS PRONOUNCED BY . DR. GARCIA SPOKE WITH EDNA AND INFORMED HER THAT PT HAD .
== END 2019-11-15 19:14 ==
LOC: ER 08:59 → ICUW 13:14 → ICUE 13:14
PROVIDERS: Emergency Medicine; Internal Medicine Nephrology; ADMIT Internal Medicine
PROC: 5A12012 Performance of Cardiac Output, Single, Manual (ICD-10-PCS; principal; 2019-11-15)
PROC: 02HV33Z Insertion of Infusion Device into Superior Vena Cava, Percutaneous Approach (ICD-10-PCS; 2019-11-15)
DX: I21.4 Non-ST elevation (NSTEMI) myocardial infarction (principal); N18.6 End stage renal disease; Z68.42 Body mass index [BMI] 45.0-49.9, adult; J96.11 Chronic respiratory failure with hypoxia; J96.12 Chronic respiratory failure with hypercapnia; N25.81 Secondary hyperparathyroidism of renal origin; E87.1 Hypo-osmolality and hyponatremia; I50.32 Chronic diastolic (congestive) heart failure; I13.2 Hypertensive heart and chronic kidney disease with heart failure and with stage 5 chronic kidney disease, or end stage renal disease; Z79.4 Long term (current) use of insulin; E11.22 Type 2 diabetes mellitus with diabetic chronic kidney disease; E11.51 Type 2 diabetes mellitus with diabetic peripheral angiopathy without gangrene; I25.2 Old myocardial infarction; E11.40 Type 2 diabetes mellitus with diabetic neuropathy, unspecified; Z86.73 Personal history of transient ischemic attack (TIA), and cerebral infarction without residual deficits; Z86.718 Personal history of other venous thrombosis and embolism; Z87.891 Personal history of nicotine dependence; Z89.512 Acquired absence of left leg below knee; Z89.511 Acquired absence of right leg below knee; E66.9 Obesity, unspecified; G47.33 Obstructive sleep apnea (adult) (pediatric); I44.7 Left bundle-branch block, unspecified; R57.0 Cardiogenic shock; E78.5 Hyperlipidemia, unspecified; Z99.2 Dependence on renal dialysis; I25.10 Atherosclerotic heart disease of native coronary artery without angina pectoris
CPT/HCPCS: 36415; 36569; 71045; 80053; 82947; 83690; 83735; 84132; 84484; 85014; 85018; 85025; 85730; 89051; 93005; 93010; 96360; 99285-25; A9270-GY; C1751; C1769; C8929; J0171; J2405; J7030; J7050; J7060; P9046; Q9957